=== PATIENT | male | born 1940 | race African-American/Black ===

== ENCOUNTER 2024-10-24 12:55 | Inpatient (IN) | payer OTHER ==
[2024-10-24 14:37] LABS: BASO % 1.1 % (0-2.0); EOS % 2.6 % (0-4.5); HEMATOCRIT 42.1 % (35.4-49); HEMOGLOBIN 13.9 GM/dL (11.7-16.9); LYMPH % 28.9 % (8-40); MCH 29.8 pg (25.7-33.7); MCHC 33.1 g/dl (32.0-35.9); MEAN CELL VOLUME 90.1 fl (80-96); MEAN PLT VOLUME 7.1 fl (7.5-11.1); MONO % 13.7 % (3.8-10.2); NEUT % 53.7 % (42.8-82.8); PLATELET COUNT 288 10^3/uL (134-434); RBC 4.68 M/mm3 (4.00-5.60); RDW 14.3 % (11.9-15.9)
[2024-10-24 15:01] LABS: POTASSIUM 3.8 mmol/L (3.5-5.1)
[2024-10-24 15:03] LABS: CALCIUM 9.6 mg/dL (8.5-10.1)
[2024-10-24 15:04] LABS: ALBUMIN 3.8 g/dl (3.4-5.0)
[2024-10-24 15:07] LABS: CREATININE 1.4 mg/dL (0.55-1.3)
[2024-10-24 15:08] LABS: BILIRUBIN,TOTAL 0.6 mg/dL (0.2-1)
[2024-10-24 15:09] LABS: TOT PROT 7.8 g/dl (6.4-8.2)
[2024-10-24 15:20] LABS: EPI CELLS 10 /uL (0-25.1); HYALINE CASTS 10 /uL (0-3.1); URINE APPEARANCE CLEAR; URINE BACTERIA 4 /uL (0-1359); URINE BILIRUBIN NEGATIVE (NEGATIVE); URINE COLOR YELLOW; URINE GLUCOSE (UA) NEGATIVE (NEGATIVE); URINE KETONE NEGATIVE (NEGATIVE); URINE LEUK ESTERASE NEGATIVE (NEGATIVE); URINE NITRITE NEGATIVE (NEGATIVE); URINE PROTEIN 1+ (NEGATIVE); URINE RBC 17 /uL (0-23.9); URINE UROBILINOGEN 0.2 mg/dL (0.2-1.0); URINE WBC 13 /uL (0-25.8)
[2024-10-24] MEDS: LACTATED RINGERS SOLUTION 1000 ML INFUS.BAG IV ONE (15:49)
[2024-10-25] MEDS: TAMSULOSIN HCL 0.4 MG CAP PO SCH (07:49)
[2024-10-25 09:41] LABS: BASO % 0.6 % (0-2.0); EOS % 3.6 % (0-4.5); HEMATOCRIT 40.8 % (35.4-49); HEMOGLOBIN 13.3 GM/dL (11.7-16.9); LYMPH % 32.8 % (8-40); MCH 29.7 pg (25.7-33.7); MCHC 32.6 g/dl (32.0-35.9); MEAN CELL VOLUME 91.1 fl (80-96); MEAN PLT VOLUME 7.7 fl (7.5-11.1); MONO % 12.6 % (3.8-10.2); NEUT % 50.4 % (42.8-82.8); PLATELET COUNT 290 10^3/uL (134-434); RBC 4.48 M/mm3 (4.00-5.60); RDW 14.3 % (11.9-15.9); WHITE BLOOD COUNT 4.6 K/mm3 (4.0-10.0)
[2024-10-25 09:46] LABS: POTASSIUM 4.6 mmol/L (3.5-5.1)
[2024-10-25 09:59] LABS: CALCIUM 9.5 mg/dL (8.5-10.1)
[2024-10-25 10:00] LABS: ALBUMIN 3.8 g/dl (3.4-5.0); BLOOD UREA NITROGEN 17.2 mg/dL (7-18)
[2024-10-25 10:02] LABS: CREATININE 1.2 mg/dL (0.55-1.3)
[2024-10-25 10:03] LABS: BILIRUBIN,TOTAL 0.6 mg/dL (0.2-1); TOT PROT 7.8 g/dl (6.4-8.2)
[2024-10-25] MEDS: NEBIVOLOL 5 MG TABLET (FP) PO SCH (12:26)
[2024-10-25] MEDS: SODIUM CHLORIDE 1,000 ML IV SCH (18:00)
[2024-10-25] MEDS: ROSUVASTATIN CA 10 MG TABLET PO SCH (21:25)
[2024-10-28] MEDS: DOCUSATE SODIUM 100 MG CAPSULE (FP) PO ONE (09:23)
[2024-10-29 10:02] LABS: BASO % 0.5 % (0-2.0); EOS % 0.8 % (0-4.5); HEMATOCRIT 34.8 % (35.4-49); HEMOGLOBIN 11.6 GM/dL (11.7-16.9); LYMPH % 17.1 % (8-40); MCH 29.8 pg (25.7-33.7); MCHC 33.2 g/dl (32.0-35.9); MEAN CELL VOLUME 89.8 fl (80-96); MEAN PLT VOLUME 8.1 fl (7.5-11.1); MONO % 12.3 % (3.8-10.2); NEUT % 69.3 % (42.8-82.8); PLATELET COUNT 240 10^3/uL (134-434); RBC 3.88 M/mm3 (4.00-5.60); RDW 13.7 % (11.9-15.9); WHITE BLOOD COUNT 9.5 K/mm3 (4.0-10.0)
[2024-10-29 10:24] LABS: POTASSIUM 3.8 mmol/L (3.5-5.1)
[2024-10-29 10:27] LABS: ALBUMIN 3.1 g/dl (3.4-5.0)
[2024-10-29 10:28] LABS: BLOOD UREA NITROGEN 13.6 mg/dL (7-18); CALCIUM 8.8 mg/dL (8.5-10.1)
[2024-10-29 10:32] LABS: BILIRUBIN,TOTAL 1.1 mg/dL (0.2-1); TOT PROT 6.4 g/dl (6.4-8.2)
[2024-10-29 13:56] VITALS: BMI 27.6
[2024-10-29] MEDS: BISACODYL 5 MG TABLET.DR (FP) PO ONE (16:44)
[2024-10-29] MEDS: PEG 3350/NA SULF BICARB CL/KCL 4000 ML SOLN.RECON PO ONE (17:43)
[2024-10-30 09:39] LABS: BASO % 0.8 % (0-2.0); EOS % 2.9 % (0-4.5); HEMOGLOBIN 11.8 GM/dL (11.7-16.9); LYMPH % 25.7 % (8-40); MCH 29.5 pg (25.7-33.7); MCHC 32.7 g/dl (32.0-35.9); MEAN CELL VOLUME 90.3 fl (80-96); MONO % 11.8 % (3.8-10.2); NEUT % 58.8 % (42.8-82.8); PLATELET COUNT 243 10^3/uL (134-434); RBC 3.99 M/mm3 (4.00-5.60); RDW 13.8 % (11.9-15.9); WHITE BLOOD COUNT 7.2 K/mm3 (4.0-10.0)
[2024-10-30 09:51] LABS: INR 1.19 (0.83-1.09); PROTHROMBIN TIME (PATIENT) 13.6 SEC (9.7-13.0)
[2024-10-30 10:09] LABS: POTASSIUM 3.5 mmol/L (3.5-5.1)
[2024-10-30 10:14] LABS: CALCIUM 8.8 mg/dL (8.5-10.1)
[2024-10-30 10:15] LABS: BLOOD UREA NITROGEN 10.8 mg/dL (7-18)
[2024-10-30 10:17] LABS: CREATININE 0.9 mg/dL (0.55-1.3)
[2024-10-30 10:19] LABS: BILIRUBIN,TOTAL 0.9 mg/dL (0.2-1); TOT PROT 6.5 g/dl (6.4-8.2)
[2024-10-30 14:21] VITALS: RESP 18
[2024-10-30] MEDS: POTASSIUM CHLORIDE ORAL LIQUID 20 MEQ/15 ML PO ONE (15:05)
[2024-10-30 17:07] VITALS: BP 106/65; PULSE 72; TEMP 97.5
== END 2024-10-30 20:00 | disposition home or self-care (01) | DRG 392 ==
LOC: JER 12:55 → JERBED 14:45 → OBSVTOIN 17:59 → J5S 21:33 → UNDODISIN 10-30 13:07
PROVIDERS: ADMIT Internal Medicine; ATTEND Internal Medicine
PROC: 0DB68ZX Excision of Stomach, Via Natural or Artificial Opening Endoscopic, Diagnostic (ICD-10-PCS; 2024-10-30)
PROC: 0DB98ZX Excision of Duodenum, Via Natural or Artificial Opening Endoscopic, Diagnostic (ICD-10-PCS; 2024-10-30)
PROC: 0DBE8ZX Excision of Large Intestine, Via Natural or Artificial Opening Endoscopic, Diagnostic (ICD-10-PCS; 2024-10-30)
PROC: 0DBE8ZZ Excision of Large Intestine, Via Natural or Artificial Opening Endoscopic (ICD-10-PCS; 2024-10-30)
PROC: 0DBP8ZX Excision of Rectum, Via Natural or Artificial Opening Endoscopic, Diagnostic (ICD-10-PCS; 2024-10-30)
PROC: 0DB58ZX Excision of Esophagus, Via Natural or Artificial Opening Endoscopic, Diagnostic (ICD-10-PCS; principal; 2024-10-30 12:00)
DX: K52.9 Noninfective gastroenteritis and colitis, unspecified (principal); R63.4 Abnormal weight loss; I10 Essential (primary) hypertension; R63.0 Anorexia; E78.5 Hyperlipidemia, unspecified; K57.90 Diverticulosis of intestine, part unspecified, without perforation or abscess without bleeding; E86.0 Dehydration; K62.1 Rectal polyp
CPT/HCPCS: 0241U-QW; 36415; 71045-TC-FY; 74177-TC; 80053; 81003; 82550; 82553; 82607; 82962; 83036; 84439; 84443; 85025; 85610; 86780; 86850; 86900; 86901; 87045; 87046; 87086; 87205; 87209; 87324; 87449; 88305-TC; 88342-TC; 93005; 93010; 97116-GP; 97161-GP; 99285-25; G0378